=== PATIENT | male | born 1970 | race African-American/Black ===

== ENCOUNTER 2017-05-17 11:48 | Emergency (ER) | payer OTHER ==
[~2017-05-17] VITALS: Ht 172.7 cm; Wt 116.5 kg
[~2017-05-17 11:48] MED LIST: AMLODIPINE BESY10 MG PO; LISINOPRIL20 MG PO; METOPROLOL SUCC50 MG PO
[2017-05-17 12:50] LABS: MCH 28.7 PG (29.0-34.0); MCHC 34.8 G/DL (30.0-36.0); MCV 82.5 FL (86-99); MEAN PLAT.VOLUME 11.1 uM^3 (9.0-12.4); PLATELET COUNT 185 K/uL (156-360); RBC DIS.WIDTH-CV 12.8 % (11.8-14.6); RBC DIS.WIDTH-SD 38.2 % (39-53); RED BLOOD COUNT 5.09 M/uL (4.00-5.50)
[2017-05-17 13:02] LABS: CHLORIDE 104 mEq/L (99-109); SODIUM 139 mEq/L (136-147)
[2017-05-17 13:04] LABS: GLUCOSE 209 mg/dL (70-99)
[2017-05-17 13:05] LABS: ANION GAP 11 MEQ/L (2-14)
[2017-05-17 13:08] LABS: GFR ESTIMATE (CALCULATED) > 59 mL/min/; UREA NITROGEN (BUN) 12 mg/dL (9-23)
[2017-05-17 13:11] LABS: TROP-I INTERPRETATION NEGATIVE; TROPONIN-I < 0.01 ng/mL (0.0-0.30)
[2017-05-17 16:17] LABS: TROP-I INTERPRETATION NEGATIVE; TROPONIN-I < 0.01 ng/mL (0.0-0.30)
[2017-05-17] MEDS ORDERED: SKELAXIN800 MG PO (16:35)
[2017-05-17] MEDS ORDERED: LO-DOSE ASPIRIN81 M1 PO (16:35)
[2017-05-17 17:11] VITALS: BP 164/87
== END 2017-05-17 17:12 | disposition home or self-care (01) ==
LOC: EME 11:48
PROVIDERS: Physician Assistant
DX: R07.9 Chest pain, unspecified (principal); R73.9 Hyperglycemia, unspecified; S39.012A Strain of muscle, fascia and tendon of lower back, initial encounter; I10 Essential (primary) hypertension
CPT/HCPCS: 71020; 80048; 84484; 85027; 93005; 99281; 99284